=== PATIENT | female | born 1985 | race Caucasian/White ===

== ENCOUNTER 2025-01-24 12:25 | Emergency (ER) | payer MEDICAID, SELFPAY ==
[2025-01-24 12:29] VITALS: BP 135/97
--- NOTE | 2025-01-24 14:45 | ED.GENMED ---
History of Present Illness
General
Chief Complaint: Alcohol Problem
Time Seen by Provider: 01/24/25 14:13
History of Present Illness
History of Present Illness:
39-year-old female with history of prior history of heroin abuse, currently off Suboxone, and EtOH abuse presenting to the emergency department for increased alcohol binge. Patient arrives with friend, notes that patient has been drinking straight
for about 15 days off today and upon return, had drank an entire bottle of tequila. Patient is able to answer questions appropriately, denies SI or HI. She is interested in detox. Notes that she has never needed inpatient detox for alcohol.
Denies chest pain, difficulty breathing, additional acute medical complaints
Phy Exam
Physical Exam
Physical Exam:
General: Well-appearing, no clinical signs of dehydration, nontoxic and in no acute distress
HEENT: protecting airway
Neck: appears supple
CV: Tachycardic
Resp: No accessory muscle use, no increased work of breathing
Abd: No distention
Extremities: No deformities, no swelling
Neuro: alert, no focal neurologic deficit
: deferred
Rectal: deferred
Psych: Normal affect
Skin: Intact
Scores
Withdrawal Assessment of Alcohol
Withdrawal Assessment Completed?: Not applicable
Course
Orders/Labs/Results
Orders:
Orders
01/24/25 14:33
0.9% Sodium Chloride 1000 ml [Nss] 1,000 ml IV BOLUS
diazePAM [Valium Injection] 2 mg IV NOW STA
01/24/25 14:34
Test Result ONCE
01/24/25 15:18
Alcohol Urgent
Complete Blood Count/With Diff Urgent
Comprehensive Metabolic Panel Urgent
HCG, Serum Qualitative Screen Urgent
Abnormal Lab Results
01/24/25
15:18
RBC 4.05 L 10^6/uL
(4.20-5.40)
MCH 34.1 H pg
(27.0-31.0)
Abs Immat Gran (auto) 0.1 H 10^3/uL
(0-0.05)
Immature Gran % 1.0 H %
(0-0.5)
Creatinine 0.4 L mg/dL
(0.6-1.0)
Glucose 108 H mg/dl
(70-99)
AST 368 H U/L
(14-36)
ALT 160 H U/L
(0-35)
Total Protein 8.4 H g/dl
(6.3-8.2)
01/24/25 15:18
01/24/25 15:18
Vital Signs
Initial and Last Documented VS:
Initial Vital Signs
Pulse Resp BP Pulse Ox
125 18 135/97 98
01/24/25 12:29 01/24/25 12:29 01/24/25 12:29 01/24/25 12:29
Last Documented Vital Signs
Pulse Resp BP Pulse Ox
111 22 135/97 94
01/24/25 15:20 01/24/25 15:18 01/24/25 12:29 01/24/25 15:20
MDM/Problems Addressed
MDM/Problems Addressed:
39-year-old female with history of EtOH abuse presenting for alcohol intoxication and seeking help for alcohol detox. Vital signs significant for tachycardia.
On exam patient is resting comfortably, no acute distress. She is cooperative with exam, answering questions appropriately. Does appear to be under the influence, however not intoxicated. She denies HI or SI. She denies additional acute medical
complaints. Will discuss with FERNA[facility]O for inpatient detox treatment. Will screen with laboratory analysis.
16:40 - Patient's labs show mild transaminitis, however suspect secondary to alcohol abuse. Alcohol level is also elevated. Case discussed with be FERNANDO and patient has a bed at a place in [place] called [facility] tomorrow. She would like to go
home until placement and in discussion with FERNNADO, is able to do so. Boyfriend will take her tomorrow. Feel stable for discharge. Return precautions discussed
*Pulse Oximetry
SaO2: 98
Oxygen Mode of Delivery: Room air
Patient hypoxic: no
*Critical Care Note
Total Time (30-74mins, 75-104mins- exclusive of procedures): Not Applicable
ED Attending Note
-
Portions of this chart may have been created with voice recognition software.� Occasional wrong word or��sound alike� substitutions may have occurred due to the inherent limitations of voice recognition software.
Discharge Plan
Departure
Patient Disposition: Home (Routine Discharge)
Date of Disposition: 01/24/25
Time of Disposition: 16:41
Patient with high blood pressure during this ER visit?: No
Condition: Fair
Discharge Problem:
Alcohol abuse
Instructions: Alcohol Use Disorder (DC)
Referrals:
UNKNOWN - PT DOES,NOT KNOW [Family Provider]
Activity Restrictions/Additional Instructions:
You were seen in the emergency department for alcohol abuse
You were accepted to a facility for detox and rehabilitation tomorrow called [facility]. Please go to the facility tomorrow morning
Please follow-up closely with your primary care physician.
Return to the emergency department for any worsening of your symptoms or any thoughts of wanting to hurt yourself or others, or any development of chest pain, difficulty breathing, abdominal pain with persistent vomiting and inability to tolerate
food or liquid by mouth (concern for dehydration), weakness, headache or confusion, fever greater than 100.4, or any additional symptoms that are concerning to you.
Thank you for choosing [facility].
Interventions
Interventions:
*Risk Screen - Suicide Last Done: 01/24/25 12:29
*General Assessment Last Done: 01/24/25 16:40
*Neglect/Abuse Screening Last Done: 01/24/25 12:29
*ED- Fall Risk Assessment Last Done: 01/24/25 16:40
*ED COVID-19 Vaccine History Last Done: 01/24/25 16:40
*ED Influenza Vaccine History Last Done: 01/24/25 16:40
*Nursing Disposition Last Done: 01/24/25 17:05
ED- Neurological Assessment Last Done: 01/24/25 16:41
ED-Psychological Assessment Last Done: 01/24/25 16:41
Discharge Date and Time
Discharge Date/Time: 01/24/25 17:17
Print Language: MEXICAN
[2025-01-24 15:16] VITALS: BMI 23.4
[2025-01-24] MEDS: VALIUM INJECTION 2 MG IV (15:21)
[2025-01-24] MEDS: NSS 1000 IV (15:21)
[2025-01-24 15:29] LABS: Hematocrit 40.1 % (37.0-47.0); Hemoglobin 13.8 g/dL (12.0-16.0); Mean Corp Hgb Conc. 34.4 g/dL (33.0-37.0); Mean Corpuscular Volume 99.0 fL (81.0-99.0); Nucleated Red Blood Cells % 0 %; Platelet Count 199 10^3/uL (130-400); Red Cell Dist. Width 12.3 % (11.5-14.5)
[2025-01-24 15:50] LABS: HCG, Serum Qualitative Screen Negative
[2025-01-24 15:55] LABS: ALT (SGPT) 160 U/L (0-35); AST (SGOT) 368 U/L (14-36); Albumin 5.0 g/dl (3.5-5.0); Alkaline Phosphatase 52 U/L (38-126); Blood Urea Nitrogen 14 mg/dl (7-17); Calcium 8.9 mg/dl (8.4-10.2); Carbon Dioxide 27 mmol/L (22-30); Chloride 102 mmol/L (98-107); Estimated Creatinine Clearance 103 ml/min; Glucose 108 mg/dl (70-99); Potassium 3.9 mmol/L (3.5-5.1); Sodium 143 mmol/L (135-145); Total Protein 8.4 g/dl (6.3-8.2); eGFR > 60.00
== END 2025-01-24 17:17 | disposition home or self-care (01) ==
LOC: EMR 12:25
PROVIDERS: EMERGENCY PHYSICIAN Student in an Organized Health Care Education/Training Program
DX: F10.10 Alcohol abuse, uncomplicated (principal); Y90.8 Blood alcohol level of 240 mg/100 ml or more
CPT/HCPCS: 96374; 96361; 99284; 80053; 82077; 84703; 85025